=== PATIENT | female | born 1990 | race Caucasian/White ===

== ENCOUNTER → 2017-02-08 | Outpatient (CLI) | payer OTHER ==
[2017-02-08 15:50] LABS: BASO % 0 % (0-3); EOS % 7 % (0-3); HEMATOCRIT 38.8 % (36.0-47.0); HEMOGLOBIN 12.8 g/dL (12.0-15.5); LYMPH # 3.1 x10^3/uL (1.0-4.8); LYMPH % 27 % (24-48); MEAN CORPUSCULAR HEMOGLOBIN 29 pg (25-35); MEAN CORPUSCULAR HGB CONC 33 g/dL (31-37); MEAN CORPUSCULAR VOLUME 86 fL (79-100); MONO % 6 % (0-9); NEUT % 60 % (31-73); PLATELET COUNT 292 x10^3/uL (140-400); RED CELL DISTRIBUTION WIDTH 13.4 % (11.5-14.5); WHITE BLOOD COUNT 11.5 x10^3/uL (4.0-11.0)
[2017-02-09 06:15] LABS: RPR REFLEX Non Reactive (Non Reactive)
== END | disposition home or self-care (01) ==
LOC: LAB 15:29
PROVIDERS: ATTEND Obstetrics & Gynecology
DX: Z32.01 Encounter for pregnancy test, result positive (principal); Z3A.00 Weeks of gestation of pregnancy not specified
CPT/HCPCS: 36415; 85027; 86593; 86703; 86762; 86900; 86901; 87340; 87341

== ENCOUNTER → 2017-04-04 | Outpatient (CLI) | payer OTHER ==
--- NOTE | 2017-04-04 17:21 | RAD ---
EXAM: Obstetric ultrasound. HISTORY: No heart tones. COMPARISON: None. FINDINGS: Sonographic evaluation of the pelvis was performed transabdominally and transvaginally. The uterus is retroflexed. There is a single intrauterine gestation measuring 7 weeks 4 days by crown-rump length. No heart motion or internal flow is identified consistent with demise. The gestational sac is somewhat large and irregular. The right ovary measures 2.5 x 1.9 cm. The left measures 2.4 x 1.8 cm. There is normal flow bilaterally. IMPRESSION: 1. No heart motion consistent with demise. Electronically signed by: Tramaine Nichols MD (04/04/2017 5:18 PM) [facility]
== END | disposition home or self-care (01) ==
LOC: US 16:19
PROVIDERS: ATTEND Obstetrics & Gynecology
DX: O09.90 Supervision of high risk pregnancy, unspecified, unspecified trimester (principal); O02.81 Inappropriate change in quantitative human chorionic gonadotropin (hCG) in early pregnancy
CPT/HCPCS: 76801; 76817

== ENCOUNTER 2017-04-14 09:38 | Day surgery (SDC) | payer OTHER ==
[~2017-04-14] VITALS: Ht 165.1 cm; Wt 96.6 kg
[~2017-04-14 09:38] MED LIST: CETI10TA22 PO; HYDROmorphone 2 MG/ML VIAL IV PRN; IV RINGERS,LACTATED 1000ML 1,000 ML IV SCH; LIDOCAINE 1% 1 ML SYRINGE. ID PRN; MORPHINE SULFATE 2 MG/ML DISP.SYRIN. IV PRN; ONDANSETRON PF 4 MG/2 ML VIAL. IV PRN; OXYTOCIN 10 UNIT/ML VIAL. ONE; PROCHLORPERAZINE 10 MG/2 ML VIAL. IV PRN; VASOPRESSIN 20 UNIT/ML VIAL. ONE; fentaNYL PF VIAL 100 MCG/2 ML VIAL IV PRN
[2017-04-14] MEDS ORDERED: DEXAMETHASONE SOD PHOS 20 MG/5 ML VIAL. ONE (11:24)
[2017-04-14] MEDS ORDERED: PROPOFOL 20 ML IV ONE (11:24)
[2017-04-14] MEDS ORDERED: FAMOTIDINE 20 MG/2 ML VIAL ONE (11:24)
[2017-04-14] MEDS ORDERED: ONDANSETRON PF 4 MG/2 ML VIAL. ONE (11:24)
[2017-04-14] MEDS ORDERED: LIDOCAINE 2% PF Vial for OR 5 ML VIAL. ONE (11:24)
[2017-04-14] MEDS ORDERED: MIDAZOLAM HCL/PF 2 MG/2 ML VIAL. ONE (11:25)
[2017-04-14] MEDS ORDERED: fentaNYL PF VIAL 100 MCG/2 ML VIAL ONE (11:26)
[2017-04-14] MEDS ORDERED: ceFAZolin 2GM PREMIX 2 GM/50 ML BAG IV ONE (12:00)
[2017-04-14] MEDS ORDERED: OXYTOCIN 10 UNIT/ML VIAL. ONE (12:09)
--- NOTE | 2017-04-14 12:21 | PDOC ---
BRIEF OPERATIVE NOTE Pre-Op Diagnosis Blighted Ovum Post-Op Diagnosis SAme Procedure Performed Suction D&C Surgeon Dr. Amin Anesthesia Type: General Blood Loss 100 ml Specimens Obtained POC Findings POC Complications none AYANA AMIN Jr, MD Apr 14, 2017 12:21
[2017-04-14] MEDS ORDERED: SEVOFLURANE 16 TO 30 MINUTES. IH ONE (12:22)
[2017-04-14] MEDS ORDERED: DESFLURANE > 120 MINUTES IH ONE (12:22)
--- NOTE | 2017-04-14 12:22 | DISCH ---
DISCHARGE INSTRUCTIONS Condition on Discharge Condition on Discharge: Stable Activity After Discharge Activity Instructions for Disc: Activity as tolerated Lifting Instructions after Dis: No heavy lifting Driving Instructions after Dis: Do not drive today Diet after Discharge Diet after Discharge: Regular Contacting the DRElmira after DC Call your doctor for: Concerns you may have Follow-Up Follow up with: Dr. Amin in 1 week. AYANA AMIN Jr, MD Apr 14, 2017 12:22
[2017-04-14] MEDS ORDERED: oxyCODONE/APAP 5/325 1 TAB TABLET PO ONE (12:45)
[2017-04-14 13:30] VITALS: BP 117/70
--- NOTE | 2017-04-14 14:49 | OP ---
DATE OF SURGERY: PREOPERATIVE DIAGNOSIS: Blighted ovum. POSTOPERATIVE DIAGNOSIS: Blighted ovum. PROCEDURE: Suction D and C. SURGEON: Ayana Amin MD ANESTHESIA: GETA. ESTIMATED BLOOD LOSS: 100 mL. COMPLICATIONS: None. FINDINGS: Products of conception. SUMMARY: A 26-year-old female who had a blighted ovum diagnosed in the clinic about 9 week size gestational sac. She was counseled on the risks, benefits and expectations of suction D and C and voiced a clear understanding to proceed. DESCRIPTION OF PROCEDURE: The patient was taken to surgery suite and placed in dorsal lithotomy position. She was prepped with Betadine solution, draped in sterile fashion. After adequate anesthesia, weighted speculum and curved Albert placed vaginally. Anterior lip of the cervix grasped with a single tooth tenaculum. Cervix was dilated with Eden dilators up to size. The 9 mm curved tip suction curette was then passed removing blood products as well as products of conception. Sharp curettage took place until a fine gritty surface was palpated circumferentially. Suction curette was passed once again removed with additional blood products of conception. Single tooth tenaculum was removed. Weighted speculum was removed. The patient tolerated the procedure well and was taken to recovery room in stable condition. Sponge and needle count correct x 3. AYANA AMIN MD DR: VIRGIE/marina JOB#: [id number] / [id number]
--- NOTE | 2017-04-18 13:49 | PATHOLOGY ---
PATHOLOGY REPORT * * * * * * * * FINAL DIAGNOSIS: Uterine contents, D and C: - Products of conception, comprised of immature chorionic villi showing degenerative changes and intervillous hemorrhage, placental membranous tissue, and decidual tissue. (JPM:[email or web address]; 04/18/2017) REPORT ELECTRONICALLY SIGNED BY: Jordin Taveras M.D. DATE/TIME: 04/18/2017 13:48 * * * * * * * * GROSS PATHOLOGY: Received in formalin labeled "Nhi Cohn, products of conception," is a 9.5 x 6.2 x 1.5 cm aggregate of abundant blood clot admixed with spongiform, pink-salazar tissue. tissue is not grossly identified. Vesicular structures are absent. Greige Goods Marker tissue is submitted in cassette A1 through A3. (CAA; 04/15/2017) INITIAL CPT CODE(S): A; 82599 Professional services performed [place] [facility] [place] [address] Technical services performed by [facility] at [address] [place] [address], [facility] [address], [place] [address]. SPECIMEN(S) RECEIVED: A.Products of conception CLINICAL HISTORY: Missed PATIENT: NHI COHN /AGE: 412/19/1990 (Age: 26) PATIENT #: [id number] ALT CASE #: SPECIMEN COLLECTION DATE: 04/14/2017 SPECIMEN RECEIVED DATE: 04/14/2017 [facility] - [address] [place] [address] - PHONE: [phone] * * * END OF REPORT * * *
== END 2017-04-14 13:58 | disposition home or self-care (01) ==
LOC: SURG 09:38
PROVIDERS: ATTEND Obstetrics & Gynecology
DX: O02.0 Blighted ovum and nonhydatidiform mole (principal); Z72.89 Other problems related to lifestyle
CPT/HCPCS: 59812; J0690; J1100; J2001; J2250; J2405; J2590; J2704; J3010; S0028; J3490

== ENCOUNTER → 2018-03-29 | Outpatient (CLI) | payer OTHER | END | disposition home or self-care (01) | LOC: US 15:20 | DX: O30.031 Twin pregnancy, monochorionic/diamniotic, first trimester (principal); Z3A.12 12 weeks gestation of pregnancy | CPT/HCPCS: 76801 ==

== ENCOUNTER → 2018-06-29 | Outpatient (CLI) | payer OTHER ==
[~2018-06-29] MED LIST changes: +ASPI-630 PO; +DOCU-109 PO; +FERR325T72 PO; -HYDROmorphone 2 MG/ML VIAL IV PRN; +IBUP-1027 PO; -IV RINGERS,LACTATED 1000ML 1,000 ML IV SCH; -LIDOCAINE 1% 1 ML SYRINGE. ID PRN; -MORPHINE SULFATE 2 MG/ML DISP.SYRIN. IV PRN; +NIFE30TA17 PO; -ONDANSETRON PF 4 MG/2 ML VIAL. IV PRN; -OXYTOCIN 10 UNIT/ML VIAL. ONE; -PROCHLORPERAZINE 10 MG/2 ML VIAL. IV PRN; -VASOPRESSIN 20 UNIT/ML VIAL. ONE; -fentaNYL PF VIAL 100 MCG/2 ML VIAL IV PRN
--- NOTE | 2018-09-26 10:08 | RAD ---
Obstetrical ultrasound-limited, 06/29/2018: HISTORY: High risk 20 Two intrauterine fetuses are present with a membrane the fetuses. Comparison is made to a study from 03/29/2018. Reportedly there has been an interval ultrasound exam at an outside institution, however, that is not currently available for correlative purposes. The more inferiorly located fetus will be termed fetus A for purposes of this report. It lies in a cephalic orientation. Its biparietal diameter is 6.1 cm suggesting a gestational age of 24 weeks and 6 days. This corresponds well to the other measurements, yielding a sonographic EDC of 10/13/2018. This correlates well with the original EDC of 10/09/2018 established on the ultrasound exam of 03/29/2018. That EDC should be most accurate considering the stage in at which it was obtained. The heart rate is 145 bpm. The head to abdominal circumference ratio is within normal limits. A full survey was not performed at this time. The placenta supplying fetus A lies posteriorly. No placenta previa is evident. The cervical length is estimated at 5.5 cm. There appears to be a normal amount of amniotic fluid. Fetus B lies more superiorly in the uterus in a variable orientation. Its biparietal diameter is 6.5 cm suggesting a gestational age of 26 weeks and 1 day. Dating based on all of its measurements suggests a gestational age of 25 weeks and 6 days yielding a sonographic EDC of 10/06/2018. This also corresponds well to the original EDC of 10/09/2018. The heart rate is 162 bpm. The head to abdominal circumference ratio is within normal limits. A full survey was not performed at this time. The placental supplying this fetus lies anteriorly. A normal amount of amniotic fluid is evident. IMPRESSION: Viable twin intrauterine of 25-26 weeks gestational age demonstrating satisfactory interval growth since 03/29/2018. Electronically signed by: George Nolasco MD (06/29/2018 4:35 PM) [facility] DICTATED and SIGNED BY: GEORGE NOLASCO MD DATE: 06/29/18 1616 MTDD
== END | disposition home or self-care (01) ==
LOC: US 14:44
PROVIDERS: ATTEND Obstetrics & Gynecology
DX: O30.042 Twin pregnancy, dichorionic/diamniotic, second trimester (principal); Z3A.26 26 weeks gestation of pregnancy
CPT/HCPCS: 76805; 76810

== ENCOUNTER 2018-08-08 14:54 | Observation (INO) | payer OTHER ==
[~2018-08-08 14:54] MED LIST changes: -ASPI-630 PO; -DOCU-109 PO; -FERR325T72 PO; -IBUP-1027 PO; -NIFE30TA17 PO
--- NOTE | 2018-08-08 16:54 | RAD ---
Ultrasound biophysical profile History: Twin gestation. Comparison: Ultrasound biophysical profile August 01, 2018. Findings: Ultrasound biophysical profile was performed. Amniotic fluid index is 12.0 cm. Score is as follows: Baby A: motion, 2 of 2. breathing, 2 of 2. tone, 2 of 2. Qualitative amniotic fluid volume, 2 of 2. Total score is 8 of 8. Baby A is on maternal right. Presentation of baby A is breech. heart rate is 136 bpm. Biometric data is as follows: BPD = 7.56 cm for 30 weeks 2 days. HC = 28.48 cm for 31 weeks 2 days. AC = 27.29 cm for 31 weeks 3 days. FL = 5.98 cm for 31 weeks 1 days. HC/AC = 1.04, within normal limits. Overall, the average ultrasound age is 31 weeks 0 days for an estimated date of delivery of October 10, 2018. Estimated gestational age by last menstrual period calculation is 31 weeks 1 day. Estimated weight is 1720 +/- 255 grams which is at 46 percentile. Baby B: motion, 2 of 2. breathing, 2 of 2. tone, 2 of 2. Qualitative amniotic fluid volume, 2 of 2. Total score is 8 of 8. Baby B is located on maternal left. Presentation is breech. Biometric data is as follows: BPD = 7.49 cm for 30 weeks 0 days. HC = 28.82 cm for 31 weeks 5 days. AC = 27.50 cm for 31 weeks 4 days. FL = 5.96 cm for 31 weeks 0 days. HC/AC = 1.05, within normal limits. Overall, the average ultrasound age is 31 weeks 1 day for an estimated date of delivery of October 09, 2018. Estimated gestational age by last menstrual period calculation is 31 weeks 1 day. Estimated weight is 1738 +/- 257 grams which is at 47th percentile. Impression: Biophysical profile score is 8 of 8. Electronically signed by: Arnold Dinh MD (08/08/2018 4:51 PM) [place] [id number]
== END 2018-08-08 16:40 | disposition home or self-care (01) ==
LOC: 3 SO LND 14:54
PROVIDERS: ADMIT Obstetrics & Gynecology; ATTEND Obstetrics & Gynecology
DX: O32.1XX0 Maternal care for breech presentation, not applicable or unspecified (principal); Z3A.31 31 weeks gestation of pregnancy
CPT/HCPCS: 76819; G0378; G0379; 59025

== ENCOUNTER 2018-08-15 14:48 | Observation (INO) | payer OTHER ==
[2018-08-15 15:31] LABS: BILIRUBIN,URINE NEGATIVE (NEG); CLARITY,URINE CLEAR; COLOR,URINE YELLOW; NITRITE,URINE NEGATIVE (NEG); PROTEIN,URINE NEGATIVE (NEG-TRACE); UROBILINOGEN,URINE 0.2 mg/dL (0.2 mg/dL)
[2018-08-15 15:43] LABS: BACTERIA,URINE MANY /HPF (0-FEW); SQUAMOUS EPITHELIAL CELL,UR MANY /LPF
[2018-08-15 15:44] LABS: RBC,URINE OCC /HPF (0-2)
--- NOTE | 2018-08-15 16:55 | RAD ---
Ultrasound biophysical profile, 08/15/2018: HISTORY: High risk 20 There is a twin intrauterine . Twin A lies on the maternal right in a breech orientation. It demonstrates a heart rate of 141 bpm. Today's measurements suggest a gestational age of 32-33 weeks yielding a sonographic EDC of 10/07/2018. This correlates well with the original EDC of 10/09/2018. The weight was estimated at 4 pounds and 7 ounces +/- 11 ounces. The head to abdominal circumference ratio is within normal limits. The placenta supplying twin A lies posteriorly. The DHIRAJ is 6.4. The following biophysical profile scores were obtained for twin A: breathing movements-2 motion-2 tone-2 Amniotic fluid volume-2 Total score-8 out of 8 The fetus termed twin B lies on the maternal left in a cephalic orientation. It demonstrates a heart rate of 140 bpm. The measurements are similar to those seen for twin A, yielding a gestational age of 32-33 weeks. The weight of this fetus was estimated at 4 pounds and 6 ounces +/- 10 ounces. The head to abdominal circumference ratio is within normal limits. The placenta supplying twin B lies anteriorly. The amniotic fluid index related to twin B is 4.4. The following biophysical profile scores were obtained for twin B: breathing movements-2 motion-2 tone-2 Amniotic fluid volume-2 Total score-8 out of 8: IMPRESSION: The ultrasound component of the biophysical profile score for both twins is 8 out of 8. Electronically signed by: George Nolasco MD (08/15/2018 4:51 PM) [facility]
== END 2018-08-15 17:23 | disposition home or self-care (01) ==
LOC: 3 SO LND 14:48
PROVIDERS: ADMIT Obstetrics & Gynecology; ATTEND Obstetrics & Gynecology
DX: O30.003 Twin pregnancy, unspecified number of placenta and unspecified number of amniotic sacs, third trimester (principal); Z3A.32 32 weeks gestation of pregnancy
CPT/HCPCS: 76819; 81001; G0378; G0379; 87086

== ENCOUNTER 2018-08-17 14:44 | Observation (INO) | payer OTHER ==
[2018-08-17] MEDS ORDERED: IV RINGERS,LACTATED 1000ML 1,000 ML IV PRN (15:00)
[2018-08-17 15:22] LABS: BILIRUBIN,URINE NEGATIVE (NEG); CLARITY,URINE CLEAR; COLOR,URINE YELLOW; NITRITE,URINE NEGATIVE (NEG); PROTEIN,URINE 30 mg/dL (NEG-TRACE); UROBILINOGEN,URINE 0.2 mg/dL (0.2 mg/dL)
[2018-08-17] MEDS ORDERED: BETAMET ACET&NA PHOS 30 MG/5 ML VIAL. IM SCH (15:30)
[2018-08-17 15:38] LABS: BACTERIA,URINE MODERATE /HPF (0-FEW); SQUAMOUS EPITHELIAL CELL,UR MANY /LPF; WBC,URINE 20-40 /HPF (0-4)
[2018-08-17 15:42] LABS: AMNIO PT NEGATIVE
--- NOTE | 2018-08-17 16:14 | RAD ---
Limited OB ultrasound study - DHIRAJ Clinical indications: Leakage of fluid. History of twins. DHIRAJ evaluation. FINDINGS: Baby A demonstrates a heart rate of 136 bpm and baby B demonstrates a heart rate of 160 bpm. DHIRAJ using the 4 quadrant method is 13.3 which is normal. Cervix is not visualized. IMPRESSION: DHIRAJ is 13.3. Electronically signed by: Justin Will MD (08/17/2018 4:10 PM) [place] [id number]
== END 2018-08-17 16:20 | disposition home or self-care (01) ==
LOC: 3 SO LND 14:44
PROVIDERS: ADMIT Specialist; ATTEND Specialist
DX: O42.913 Preterm premature rupture of membranes, unspecified as to length of time between rupture and onset of labor, third trimester (principal); Z3A.32 32 weeks gestation of pregnancy
CPT/HCPCS: 36415; 76815; 81001; 84112; 87086; 96372; G0378; G0379; J0702

== ENCOUNTER 2018-08-18 16:12 | Observation (INO) | payer OTHER ==
[2018-08-18] MEDS ORDERED: BETAMET ACET&NA PHOS 30 MG/5 ML VIAL. IM ONE (16:45)
== END 2018-08-18 17:15 | disposition home or self-care (01) ==
LOC: 3 SO LND 16:12
PROVIDERS: ADMIT Obstetrics & Gynecology; ATTEND Obstetrics & Gynecology
DX: Z34.83 Encounter for supervision of other normal pregnancy, third trimester (principal); Z3A.32 32 weeks gestation of pregnancy
CPT/HCPCS: G0379; J0702

== ENCOUNTER 2018-08-22 15:10 | Observation (INO) | payer OTHER ==
--- NOTE | 2018-08-22 17:23 | RAD ---
Biophysical profile: Clinical indications: High risk twin . Findings: A twin intrauterine . Fetus A: Breech. Maternal right hand side. heart rate is 125. breathing movements: 2. motion: 2. tone: 2. Amniotic fluid volume: 2. Therefore, the biophysical profile score is 8 out of 8. Placenta: Posterior. Fetus B: Cephalic. On the maternal left hand side. heart rate is 145. breathing movements: 2. motion: 2. tone: 2. Amniotic fluid volume: 2. Therefore, the biophysical profile score is 8 out of 8. Placenta: Anterior. Cervix: Not visualized. IMPRESSION: Biophysical profile score is 8 out of 8 for fetus A. Biophysical profile score is 8 out of 8 for fetus B. Electronically signed by: Justin Will MD (08/22/2018 5:19 PM) [facility]
== END 2018-08-22 16:25 | disposition home or self-care (01) ==
LOC: 3 SO LND 15:10
PROVIDERS: ADMIT Obstetrics & Gynecology; ATTEND Obstetrics & Gynecology
DX: Z34.83 Encounter for supervision of other normal pregnancy, third trimester (principal); Z3A.33 33 weeks gestation of pregnancy
CPT/HCPCS: 76819; G0379; 59025

== ENCOUNTER 2018-08-29 14:51 | Observation (INO) | payer OTHER ==
[2018-08-29 17:04] LABS: BASO % 0 % (0-3); EOS # 0.1 x10^3/uL (0.0-0.7); EOS % 1 % (0-3); HEMATOCRIT 26.8 % (36.0-47.0); HEMOGLOBIN 8.7 g/dL (12.0-15.5); LYMPH # 2.6 x10^3/uL (1.0-4.8); LYMPH % 17 % (24-48); MEAN CORPUSCULAR HEMOGLOBIN 24 pg (25-35); MEAN CORPUSCULAR HGB CONC 33 g/dL (31-37); MEAN CORPUSCULAR VOLUME 75 fL (79-100); MONO # 0.9 x10^3/uL (0.0-1.1); MONO % 6 % (0-9); NEUT # 11.9 x10^3uL (1.8-7.7); NEUT % 77 % (31-73); PLATELET COUNT 269 x10^3/uL (140-400); RED BLOOD COUNT 3.57 x10^6/uL (3.50-5.40); RED CELL DISTRIBUTION WIDTH 16.1 % (11.5-14.5); WHITE BLOOD COUNT 15.5 x10^3/uL (4.0-11.0)
[2018-08-29 17:18] LABS: CALCIUM 9.1 mg/dL (8.5-10.1); CREATININE 0.8 mg/dL (0.6-1.0); POTASSIUM 4.6 mmol/L (3.5-5.1)
[2018-08-29 17:26] LABS: ALBUMIN 2.6 g/dL (3.4-5.0); ALBUMIN/GLOBULIN RATIO 0.6 (1.0-1.7); TOTAL BILIRUBIN 0.3 mg/dL (0.2-1.0); TOTAL PROTEIN 6.7 g/dL (6.4-8.2)
--- NOTE | 2018-08-29 17:37 | RAD ---
Examination: BIOPHYS PROFILE W/O NON STRESS History: TWIN GESTATION Comparison/Correlation: None Findings: Biophysical profile exam was performed. For baby A, the biophysical profile is 8. Amniotic fluid index is 6. Estimated weight 4 lbs. 14 oz. SHAKEEL 10/17/2018. Estimated gestational age 33 weeks 0 day. Breech lie noted. For baby B, biophysical profile is 8. Cephalic lie is present with amniotic fluid index of 6. SHAKEEL is 10/12/2018. Estimated weight is 5 lbs. 1 oz. Estimated gestational age of 34 weeks 1 day. Impression: Biophysical profile of 8 for each fetus is seen. Breech lie of baby A is noted. Electronically signed by: Oliver Winkler MD (08/29/2018 5:33 PM) [facility]
== END 2018-08-29 18:07 | disposition home or self-care (01) ==
LOC: 3 SO LND 14:51
PROVIDERS: ADMIT Obstetrics & Gynecology; ATTEND Obstetrics & Gynecology
DX: Z34.93 Encounter for supervision of normal pregnancy, unspecified, third trimester (principal); Z3A.34 34 weeks gestation of pregnancy
CPT/HCPCS: 36415; 76819; 80053; 85025; G0378; G0379; 59025

== ENCOUNTER 2018-09-06 14:35 | Observation (INO) | payer OTHER ==
--- NOTE | 2018-09-06 16:31 | RAD ---
Ultrasound biophysical profile, 09/06/2018: HISTORY: High risk twin The limited exam of the gravid uterus demonstrates a twin . The fetus termed twin A lies on the maternal right in a breech orientation. It demonstrates a heart rate of 169 bpm. The DHIRAJ is 7.6. The following biophysical profile scores were obtained: breathing movements-2 motion-2 tone-2 Amniotic fluid volume-2 Total score-8 out of 8 The fetus termed twin B lies on the maternal left in a cephalic orientation. It demonstrates a heart rate of 145 bpm. The DHIRAJ is 8.3. The following biophysical profile scores were obtained: breathing movement-2 motion-2 tone-2 Amniotic fluid volume-2 Total score-8 out of 8 IMPRESSION: The ultrasound component of the biophysical profile score for both twins is 8 out of 8. Electronically signed by: George Nloasco MD (09/06/2018 4:27 PM) [facility]
== END 2018-09-06 15:50 | disposition home or self-care (01) ==
LOC: 3 SO LND 14:35
PROVIDERS: ADMIT Obstetrics & Gynecology; ATTEND Obstetrics & Gynecology
DX: O30.003 Twin pregnancy, unspecified number of placenta and unspecified number of amniotic sacs, third trimester (principal); Z3A.35 35 weeks gestation of pregnancy
CPT/HCPCS: 76819; G0379

== ENCOUNTER → 2018-09-25 | Outpatient (CLI) | payer OTHER ==
[2018-09-21 16:41] VITALS: BP 128/79
[~2018-09-25] MED LIST changes: +ASPI-630 PO; +DOCU-109 PO; +FERR325T72 PO; +IBUP-1027 PO; +NIFE30TA17 PO
== END | disposition home or self-care (01) ==
LOC: PMGWOUND 07:44
PROVIDERS: ATTEND Emergency Medicine Undersea and Hyperbaric Medicine
DX: T81.31XA Disruption of external operation (surgical) wound, not elsewhere classified, initial encounter (principal); I10 Essential (primary) hypertension; E66.01 Morbid (severe) obesity due to excess calories; Z68.34 Body mass index [BMI] 34.0-34.9, adult; Y83.8 Other surgical procedures as the cause of abnormal reaction of the patient, or of later complication, without mention of misadventure at the time of the procedure; Y92.89 Other specified places as the place of occurrence of the external cause
CPT/HCPCS: 97605

== ENCOUNTER → 2018-09-28 | Outpatient (CLI) | payer OTHER ==
[2018-09-21 16:41] VITALS: BP 128/79
== END | disposition home or self-care (01) ==
LOC: PMGWOUND 08:37
PROVIDERS: ATTEND Emergency Medicine Undersea and Hyperbaric Medicine
DX: T81.31XD Disruption of external operation (surgical) wound, not elsewhere classified, subsequent encounter (principal); I10 Essential (primary) hypertension; E66.9 Obesity, unspecified; Z68.34 Body mass index [BMI] 34.0-34.9, adult; E66.01 Morbid (severe) obesity due to excess calories; Y83.8 Other surgical procedures as the cause of abnormal reaction of the patient, or of later complication, without mention of misadventure at the time of the procedure
CPT/HCPCS: 97605

== ENCOUNTER → 2018-10-02 | Outpatient (CLI) | payer OTHER ==
[2018-09-21 16:41] VITALS: BP 128/79
== END | disposition home or self-care (01) ==
LOC: PMGWOUND 10:00
PROVIDERS: ATTEND Emergency Medicine Undersea and Hyperbaric Medicine
DX: T81.31XD Disruption of external operation (surgical) wound, not elsewhere classified, subsequent encounter (principal); I10 Essential (primary) hypertension; E66.01 Morbid (severe) obesity due to excess calories; Z68.34 Body mass index [BMI] 34.0-34.9, adult; Y83.8 Other surgical procedures as the cause of abnormal reaction of the patient, or of later complication, without mention of misadventure at the time of the procedure
CPT/HCPCS: 97605

== ENCOUNTER → 2018-10-05 | Outpatient (CLI) | payer OTHER ==
[2018-09-21 16:41] VITALS: BP 128/79
== END | disposition home or self-care (01) ==
LOC: PMGWOUND 08:41
PROVIDERS: ATTEND Emergency Medicine Undersea and Hyperbaric Medicine
DX: T81.31XD Disruption of external operation (surgical) wound, not elsewhere classified, subsequent encounter (principal); E66.01 Morbid (severe) obesity due to excess calories; I10 Essential (primary) hypertension; Z68.34 Body mass index [BMI] 34.0-34.9, adult
CPT/HCPCS: 99214; G0463

== ENCOUNTER → 2018-10-09 | Outpatient (CLI) | payer OTHER ==
[2018-09-21 16:41] VITALS: BP 128/79
== END | disposition home or self-care (01) ==
LOC: PMGWOUND 09:55
PROVIDERS: ATTEND Nurse Practitioner Family
DX: T81.31XD Disruption of external operation (surgical) wound, not elsewhere classified, subsequent encounter (principal); I10 Essential (primary) hypertension; E66.01 Morbid (severe) obesity due to excess calories; Z68.34 Body mass index [BMI] 34.0-34.9, adult; Y83.8 Other surgical procedures as the cause of abnormal reaction of the patient, or of later complication, without mention of misadventure at the time of the procedure
CPT/HCPCS: 17250

== ENCOUNTER → 2018-10-16 | Outpatient (CLI) | payer OTHER ==
[2018-09-21 16:41] VITALS: BP 128/79
== END | disposition home or self-care (01) ==
LOC: PMGWOUND 08:30
PROVIDERS: ATTEND Emergency Medicine Undersea and Hyperbaric Medicine
DX: T81.31XD Disruption of external operation (surgical) wound, not elsewhere classified, subsequent encounter (principal); I10 Essential (primary) hypertension; E66.01 Morbid (severe) obesity due to excess calories; Z68.34 Body mass index [BMI] 34.0-34.9, adult; Y83.8 Other surgical procedures as the cause of abnormal reaction of the patient, or of later complication, without mention of misadventure at the time of the procedure
CPT/HCPCS: 99213

== ENCOUNTER → 2018-10-30 | Outpatient (CLI) | payer OTHER ==
[2018-09-21 16:41] VITALS: BP 128/79
== END | disposition home or self-care (01) ==
LOC: PMGWOUND 08:39
PROVIDERS: ATTEND Emergency Medicine Undersea and Hyperbaric Medicine
DX: T81.31XD Disruption of external operation (surgical) wound, not elsewhere classified, subsequent encounter (principal); I10 Essential (primary) hypertension; E66.01 Morbid (severe) obesity due to excess calories; Z68.34 Body mass index [BMI] 34.0-34.9, adult; Y83.8 Other surgical procedures as the cause of abnormal reaction of the patient, or of later complication, without mention of misadventure at the time of the procedure
CPT/HCPCS: 17250

== ENCOUNTER → 2018-11-13 | Outpatient (CLI) | payer OTHER ==
[2018-09-21 16:41] VITALS: BP 128/79
== END | disposition home or self-care (01) ==
LOC: PMGWOUND 08:32
PROVIDERS: ATTEND Preventive Medicine Undersea and Hyperbaric Medicine
DX: T81.31XD Disruption of external operation (surgical) wound, not elsewhere classified, subsequent encounter (principal); I10 Essential (primary) hypertension; E66.01 Morbid (severe) obesity due to excess calories; Z68.34 Body mass index [BMI] 34.0-34.9, adult; Z79.82 Long term (current) use of aspirin; Y83.8 Other surgical procedures as the cause of abnormal reaction of the patient, or of later complication, without mention of misadventure at the time of the procedure
CPT/HCPCS: 99213; G0463

== ENCOUNTER → 2021-05-19 | Outpatient (CLI) | payer OTHER ==
[2018-09-21 16:41] VITALS: BP 128/79
[~2021-05-19] MED LIST changes: -CETI10TA22 PO; +CETI10TA74 PO; -NIFE30TA17 PO; +NIFE30TA95 PO
== END ==
LOC: LAB 09:06
PROVIDERS: ATTEND Internal Medicine Pulmonary Disease
DX: Z20.822 Contact with and (suspected) exposure to COVID-19 (principal)
CPT/HCPCS: U0003; U0005

== ENCOUNTER → 2021-05-22 | Outpatient (CLI) | payer OTHER ==
[2018-09-21 16:41] VITALS: BP 128/79
== END ==
LOC: LAB 07:43
PROVIDERS: ATTEND Internal Medicine Pulmonary Disease
DX: Z20.822 Contact with and (suspected) exposure to COVID-19 (principal)
CPT/HCPCS: U0003; U0005